=== PATIENT | male | born 1960 | race African-American/Black ===

== ENCOUNTER 2020-06-30 10:49 | Emergency (ER) | payer MEDICAID ==
[~2020-06-30] VITALS: Ht 170.2 cm; Wt 77.0 kg
[2020-06-30 10:51] VITALS: BP 154/95
[2020-06-30] MEDS ORDERED: ACETAMINOPHEN 325MG TABLET PO STA (11:04)
[2020-06-30] MEDS ORDERED: LIDOCAINE HCL/EPINEPHRINE 1%-EPI 1:100,000 20 ML VIAL INFIL ONE (11:15)
== END 2020-06-30 13:34 | disposition home or self-care (01) ==
LOC: ER 10:49
DX: S61.217A Laceration without foreign body of left little finger without damage to nail, initial encounter (principal); I10 Essential (primary) hypertension; E78.00 Pure hypercholesterolemia, unspecified; W26.8XXA Contact with other sharp object(s), not elsewhere classified, initial encounter; Y93.89 Activity, other specified; Y92.018 Other place in single-family (private) house as the place of occurrence of the external cause
CPT/HCPCS: 73140; 99283; J3490; Z7610

== ENCOUNTER 2020-07-02 12:01 | Emergency (ER) | payer MEDICAID ==
[~2020-07-02] VITALS: Ht 170.2 cm; Wt 79.0 kg
[2020-07-02] MEDS ORDERED: BO1 TP (12:37)
[2020-07-02 12:46] VITALS: BP 159/89
== END 2020-07-02 12:46 | disposition home or self-care (01) ==
LOC: ER 12:34
DX: Z48.00 Encounter for change or removal of nonsurgical wound dressing (principal); I10 Essential (primary) hypertension; E78.00 Pure hypercholesterolemia, unspecified
CPT/HCPCS: 99281

== ENCOUNTER 2023-03-09 23:40 | Emergency (ER) | payer MEDICAID ==
[~2023-03-09] VITALS: Ht 170.2 cm; Wt 71.8 kg
[~2023-03-09 23:40] MED LIST: BO1 TP
[2023-03-10 00:03] VITALS: BP 133/94; O2SAT 98
[2023-03-10] MEDS ORDERED: TETANUS, DIPHTHERIA, PERTUSSIS VAC/PF 0.5ML (>10YR OLD) IM ONE (00:30)
[2023-03-10] MEDS ORDERED: MUPI1OIN4 TP (00:37)
[2023-03-10] MEDS ORDERED: SULF1TAB48 MT (00:37)
[2023-03-10 01:20] VITALS: PULSE 74; RESP 16; TEMP 97.3
== END 2023-03-10 01:22 | disposition home or self-care (01) ==
LOC: ER 23:40
DX: S61.411A Laceration without foreign body of right hand, initial encounter (principal); E78.00 Pure hypercholesterolemia, unspecified; I10 Essential (primary) hypertension; X58.XXXA Exposure to other specified factors, initial encounter; Y93.89 Activity, other specified; Y92.89 Other specified places as the place of occurrence of the external cause; Y99.8 Other external cause status
CPT/HCPCS: 99283; 90715; 90471; Z7610 ×3

== ENCOUNTER 2025-04-01 17:31 | Emergency (ER) | payer MEDICARE, MEDICAID ==
[~2025-04-01] VITALS: Ht 172.7 cm; Wt 78.0 kg
[~2025-04-01 17:31] MED LIST changes: +MUPI1OIN4 TP; +SULF1TAB48 MT
[2025-04-01] MEDS: TETANUS, DIPHTHERIA, PERTUSSIS VAC/PF 0.5ML (>10YR OLD) IM ONE (19:16)
[2025-04-01] MEDS ORDERED: AMOX1TAB16 MT (19:24)
[2025-04-01 20:27] VITALS: BP 145/97; PULSE 74; RESP 18; TEMP 36.8; O2SAT 99
== END 2025-04-01 20:29 | disposition home or self-care (01) ==
LOC: ER 17:31
DX: S81.852A Open bite, left lower leg, initial encounter (principal); E78.00 Pure hypercholesterolemia, unspecified; I10 Essential (primary) hypertension; W54.0XXA Bitten by dog, initial encounter; Y93.89 Activity, other specified; Y92.89 Other specified places as the place of occurrence of the external cause; Y99.8 Other external cause status
CPT/HCPCS: 90471; 90715; 99283